=== PATIENT | male | born 1970 | race Two or more races ===

== ENCOUNTER → 2017-05-02 | Outpatient (REF) | payer OTHER ==
[~2017-05-02] MED LIST: FLUT16SP20 NS; KET10 PO; OXYC-865 PO; ZOL5 PO
== END ==
LOC: ZZSENDIN 10:58
PROVIDERS: ATTEND Family Medicine
DX: R73.01 Impaired fasting glucose (principal); E78.5 Hyperlipidemia, unspecified
CPT/HCPCS: 83036

== ENCOUNTER → 2017-12-04 | Outpatient (CLI) | payer OTHER ==
[2017-12-04 08:57] LABS: LDL CHOLESTEROL 106 mg/dl
== END ==
LOC: LAB 07:22
PROVIDERS: ATTEND Family Medicine
DX: E78.5 Hyperlipidemia, unspecified (principal)
CPT/HCPCS: 36415; 82040; 82247; 82310; 82374; 82435; 82465; 82565; 82947; 83036; 83718; 84075; 84132; 84155; 84295; 84450; 84460; 84478; 84520

== ENCOUNTER → 2018-04-08 | Outpatient (CLI) | payer OTHER | LOC: LAB 08:10 | PROVIDERS: ATTEND Family Medicine | DX: E11.9 Type 2 diabetes mellitus without complications (principal) | CPT/HCPCS: 36415; 83036 ==

== ENCOUNTER → 2018-04-08 | Outpatient (REF) ==
[2018-04-08 08:52] LABS: LDL CHOLESTEROL 115 mg/dl
== END ==
DX: Z02.9 Encounter for administrative examinations, unspecified (principal)

== ENCOUNTER → 2018-09-30 | Outpatient (CLI) | payer OTHER ==
[2018-09-30 08:43] LABS: LDL CHOLESTEROL 116 mg/dl
== END ==
LOC: LAB 07:59
PROVIDERS: ATTEND Family Medicine
DX: Z01.812 Encounter for preprocedural laboratory examination (principal)
CPT/HCPCS: 36415; 82040; 82043; 82247; 82310; 82374; 82435; 82465; 82565; 82947; 83036; 83718; 84075; 84132; 84155; 84295; 84450; 84460; 84478; 84520

== ENCOUNTER → 2018-10-02 | Outpatient (CLI) | payer OTHER ==
--- NOTE | 2018-10-02 08:14 | RADIOLOGY IMAGING REPORT ---
FACILITY: [facility] PATIENT NAME: Oliver Farmer : 1970 MR: [id number] V: [id number] EXAM DATE: ORDERING PHYSICIAN: MIGUEL JOHN TECHNOLOGIST: Location: [facility] Patient: Oliver Farmer : 1970 Visit/Account:[id number] Date of Sevice: 10/02/2018 L-SPINE 2 OR 3 VIEW, HIP RIGHT History: Lumbar spine and hip pain. Comparison study: None. Findings: Lumbar spine: There are 5 nonrib-bearing lumbar-type vertebral bodies, but there is partia l sacralization of L5 on the right side. There is no fracture, spondylolisthesis or spondylolysis. There are mild discogenic degenerative changes throughout the lumbar spine. The sacroiliac joints are unremarkable. Right hip: There are findings of superolateral joint space now with subchondral sclerosis involving t he hips bilaterally. These findings are suggestive of osteoarthrosis. IMPRESSION: 1. No fracture or spondylolisthesis in the lumbar spine. 2. 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 3. Diffuse discogenic degenerative changes. 4. Osteoarthrosis of the hips bilaterally. Report Dictated By: Anselmo Guerrero MD at 10/02/2018 8:07 AM Report E-Signed By: Anselmo Guerrero MD at 10/02/2018 8:09 AM WSN:[id number]
--- NOTE | 2018-10-02 08:15 | RADIOLOGY IMAGING REPORT ---
FACILITY: [facility] PATIENT NAME: Oliver Farmer : 1970 MR: [id number] V: [id number] EXAM DATE: ORDERING PHYSICIAN: MIGUEL JOHN TECHNOLOGIST: Location: [facility] Patient: Oliver Farmer : 1970 Visit/Account:[id number] Date of Sevice: 10/02/2018 L-SPINE 2 OR 3 VIEW, HIP RIGHT History: Lumbar spine and hip pain. Comparison study: None. Findings: Lumbar spine: There are 5 nonrib-bearing lumbar-type vertebral bodies, but there is partia l sacralization of L5 on the right side. There is no fracture, spondylolisthesis or spondylolysis. There are mild discogenic degenerative changes throughout the lumbar spine. The sacroiliac joints are unremarkable. Right hip: There are findings of superolateral joint space now with subchondral sclerosis involving t he hips bilaterally. These findings are suggestive of osteoarthrosis. IMPRESSION: 1. No fracture or spondylolisthesis in the lumbar spine. 2. 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 3. Diffuse discogenic degenerative changes. 4. Osteoarthrosis of the hips bilaterally. Report Dictated By: Anselmo Guerrero MD at 10/02/2018 8:07 AM Report E-Signed By: Anselmo Guerrero MD at 10/02/2018 8:09 AM WSN:[email or web address]
== END ==
LOC: RAD 07:07
PROVIDERS: ATTEND Family Medicine
DX: M16.0 Bilateral primary osteoarthritis of hip (principal); M47.896 Other spondylosis, lumbar region
CPT/HCPCS: 72100